=== PATIENT | female | born 1970 | race Caucasian/White ===

== ENCOUNTER → 2020-02-14 17:21 | Outpatient (BNVA) | payer OTHER, SELFPAY | PROVIDERS: Family Provider Family Medicine; PCP Family Medicine; Visit Provider Surgery | DX: Z01.818 Encounter for other preprocedural examination (principal) | CPT/HCPCS: 87635 ==

== ENCOUNTER 2020-02-19 06:59 | Day surgery (SDC) | payer OTHER, SELFPAY ==
[2020-02-15 13:01] VITALS: BMI 31.4
[2020-02-19 07:09] VITALS: BP 154/86; PULSE 70; RESP 16; TEMP 36.5; O2SAT 100
--- NOTE | 2020-02-19 07:24 | ANES.PREANE2 ---
Pre-Anesthetic Assessment Pre-Anesthetic Assessment: Height/Weight: Height 1.63 m Weight 83.007 kg Temp Pulse Resp BP Pulse Ox 97.7 F 70 16 154/86 100 02/19/20 07:09 02/19/20 07:09 02/19/20 07:09 02/19/20 07:09 02/19/20 07:09 Preop Diagnosis: panendoscopy Proposed Procedure: Operation Date: 02/19/20 08:00 Proposed Procedures p EGD [id number] K92.1(Not Applicable) - Pnio Colorado MD s Colonoscopy(Not Applicable) - Pino Colorado MD Was Beta Santosh taken within 24 hours: N/A Last intake: Intake Last Liquid Date 02/18/20 Last Liquid Time 22:00 Last Solid Date 02/17/20 Last Solid Time 18:30 Social: Social History: No alcohol and No tobacco Exam: Pre-Anes Outpt Exam: alert, oriented x 3, clear to auscultation bilaterally and regular rate & rhythm Airway: Submandibular: WNL Cervical ROM: WNL MP: 2 Dentition: Full CV/HEM: CV/HEM: Anemia Metabolic: Metabolic: Morbid obesity Anesthetic Plan: ASA status: 2 Anesthesia: MAC PFSH Anesthesia PFSH: Medical History Anxiety Depression IBS (irritable bowel syndrome) Surgical History H/O exploratory laparotomy x 2 for twisted bowel H/O gastric bypass H/O hernia repair H/O tubal ligation H/O: hysterectomy History of oophorectomy, unilateral Hx of cholecystectomy Status post colonoscopy Family History Father CAD (coronary artery disease) Other Cancer Diabetes Hypertension Denies family history of Anesthesia complication Bleeding disorder Social History Smoking and tobacco status: never smoked Alcohol intake: never Household members: spouse Marital status: Current occupational status: employed History of recent travel: No Data Anesthesia Cardiac Studies: No Data to Display
[2020-02-19] MEDS: sodium chloride 0.9% 1,000 ML 30 ML IV (07:27)
[2020-02-19 08:41] VITALS: BP 104/61; PULSE 75; RESP 16; TEMP 36.6; O2SAT 100
--- NOTE | 2020-02-19 08:42 | ANE.PACU2 ---
Inpatient post-anesthesia follow up: Airway intact: Yes Vital signs: Temperature 97.7 F Pulse Rate 70 Respiratory Rate 16 Blood Pressure 154/86 Pulse Oximetry 100 Oxygen Delivery Me thod Room Air Oxygen Flow Rate Fraction of Inspir ed Oxygen Hydration adequate: Yes Nausea and vomiting: No Mental status: Baseline
--- NOTE | 2020-02-19 08:45 | W.PM.OPSUD ---
Surgery/Procedure H&P Update DATE OF PROCEDURE: February 19, 2020 DATE H&P PERFORMED: 01/21/20 H&P UPDATE INFORMATION: I have reviewed H&P completed within last 30 days, I have examined patient prior to procedure and No changes to prior documentation PREOP DIAGNOSIS: panendoscopy PLANNED PROCEDURE: Operation Date: 02/19/20 08:00 Proposed Procedures p EGD [id number] K92.1(Not Applicable) - Pino Colorado MD s Colonoscopy(Not Applicable) - Pino Colorado MD
[2020-02-19 08:56] VITALS: BP 109/66; PULSE 58; RESP 18; TEMP 36.5; O2SAT 99
[2020-02-19 09:13] VITALS: BP 129/68; PULSE 56; RESP 18; O2SAT 99
--- NOTE | 2020-02-19 15:36 | ANE.PACU2 ---
Inpatient post-anesthesia follow up: Airway intact: Yes Vital signs: Temperature 97.7 F Pulse Rate 56 Respiratory Rate 18 Blood Pressure 129/68 Pulse Oximetry 99 Oxygen Delivery Me thod Room Air Oxygen Flow Rate 4 Fraction of Inspir ed Oxygen Hydration adequate: Yes Nausea and vomiting: No Pain level: 1 Mental status: Baseline
== END 2020-02-19 09:33 | disposition home or self-care (01) ==
PROVIDERS: PCP Family Medicine; Visit Provider Surgery
PROC: 0DJ08ZZ Inspection of Upper Intestinal Tract, Via Natural or Artificial Opening Endoscopic (ICD-10-PCS; CPT 43235; principal; 2020-02-19 08:00)
PROC: 0DJD8ZZ Inspection of Lower Intestinal Tract, Via Natural or Artificial Opening Endoscopic (ICD-10-PCS; CPT 45378; 2020-02-19 08:00)
DX: K92.1 Melena (principal); K57.30 Diverticulosis of large intestine without perforation or abscess without bleeding; K64.8 Other hemorrhoids; R10.12 Left upper quadrant pain; F41.9 Anxiety disorder, unspecified; F32.9 Major depressive disorder, single episode, unspecified; K44.9 Diaphragmatic hernia without obstruction or gangrene; E66.01 Morbid (severe) obesity due to excess calories; Z68.31 Body mass index [BMI] 31.0-31.9, adult
CPT/HCPCS: 12345; 43235; 45378; J2704; J7030

== ENCOUNTER 2020-03-04 10:46 | Outpatient (CLI) | payer OTHER, SELFPAY ==
--- NOTE | 2020-03-04 10:58 | MM_ITS ---
WS: [id number] BILATERAL DIGITAL SCREENING MAMMOGRAPHY WITH CAD CLINICAL INFORMATION: SCREENING HISTORY: Screening mammogram. No current complaints. COMPARISON: September 28, 2016 TECHNIQUE: Bilateral CC and MLO views. FINDINGS: Scattered fibroglandular densities bilaterally. No suspicious focal mass, asymmetry, calcifications, or architectural distortion. No evidence of malignancy. MM/[place] [id number] IMPRESSION: BI-RADS: 1-Negative FOLLOW UP: 1 Year Follow-up Recommend return to annual screening mammography.
== END 2020-03-04 10:47 | disposition home or self-care (01) ==
LOC: RADSHAW 10:46
PROVIDERS: PCP Family Medicine; Visit Provider Family Medicine
DX: Z12.31 Encounter for screening mammogram for malignant neoplasm of breast (principal)
CPT/HCPCS: 77067

== ENCOUNTER 2020-03-19 08:59 | Outpatient (CLI) | payer OTHER, SELFPAY ==
[2020-03-19] MEDS: iohexol 300 mg/mL 50 mL Btl PO (09:05)
[2020-03-19] MEDS: iohexol 300 mg/mL 100 mL Btl IV (10:28)
--- NOTE | 2020-03-19 10:30 | CT_ITS ---
WS: [id number] CT ABDOMEN AND PELVIS WITH CONTRAST HISTORY: R10.9 - Unspecified abdominal pain TECHNIQUE: Imaging performed of the abdomen and pelvis with IV contrast. Single phase imaging of the abdomen. Coronal and sagittal reformats are submitted. All CT scans at [facility] use at least one of these dose optimization techniques: automated exposure control; mA and/or kV adjustment per patient size (includes targeted exams where dose is matched to clinical indication); or iterativ e reconstruction. IV CONTRAST: Omnipaque 300; 95 mL IV. Oral contrast: Yes. DLP: 1163.71 mGycm COMPARISON: 06/22/2017 Lower thorax: Lung bases are clear. Heart is normal size. No hiatal hernia. Liver/biliary system: Normal size with no intrahepatic dilatation. Gallbladder: Status post cholecystectomy. Pancreas: Normal. Spleen: Normal size spleen with granulomata. Adrenal glands: Normal. Right kidney: Normal. Left kidney: Low-attenuation nodule measures 6 mm in the upper pole. No solid mass or obstruction. Aorta: Normal. Lymphadenopathy: None. Free fluid: None. GI tract: Postsurgical changes of a prior gastric bypass. There are also surgical sutures noted in th e region of the mid transverse colon. There is a swirling pattern of the mesentery within the upper m id abdomen closely associated with the transverse colon and small bowel. This may be an intussuscepti on or an internal hernia. Does not appear to be an obstruction at this time but this may cause interm ittent obstruction or even intermittent ischemia. Abdominal wall: Unremarkable abdominal wall. No hernia. Pelvis: Normal appendix. No free fluid. No adenopathy. Bones: Unremarkable. CT/CT abdomen pelvis w con* [id number] IMPRESSION: 1. Abnormal appearance of the mesentery in the mid upper abdomen. There is a s wirling appearance of the mesentery which may be related to an internal hernia/ volvulus. Intussusception may appear similar. At this time there is no obstruct ion but this may lead to intermittent obstruction or even ischemia. 2. Prior cholecystectomy. 3. LEFT renal angiomyolipoma, stable. 4. Prior gastric bypass.
== END 2020-03-19 09:00 | disposition home or self-care (01) ==
LOC: RADWPI 09:01
PROVIDERS: PCP Family Medicine; Visit Provider Surgery
DX: R10.9 Unspecified abdominal pain (principal); Z98.84 Bariatric surgery status; D17.71 Benign lipomatous neoplasm of kidney; Z90.49 Acquired absence of other specified parts of digestive tract
CPT/HCPCS: 74177; Q9967

== ENCOUNTER → 2020-12-30 16:24 | Outpatient (BNVA) | payer OTHER, SELFPAY | PROVIDERS: PCP Family Medicine; Visit Provider Family Medicine | DX: D64.9 Anemia, unspecified (principal); K58.9 Irritable bowel syndrome, unspecified; K92.1 Melena; Z13.220 Encounter for screening for lipoid disorders; Z13.6 Encounter for screening for cardiovascular disorders; Z76.89 Persons encountering health services in other specified circumstances | CPT/HCPCS: 80053; 80061; 84439; 84443; 85025 ==

== ENCOUNTER 2021-05-25 07:50 | Outpatient (CLI) | payer OTHER, SELFPAY ==
--- NOTE | 2021-05-25 07:56 | MM_ITS ---
WS: [id number] BILATERAL SCREENING 3D TOMOSYNTHESIS DIGITAL MAMMOGRAM WITH CAD HISTORY: SCREENING COMPARISON: 03/04/2020 and 09/28/2016 Bilateral CC and MLO views submitted. Computer aided detection analyzed. Breast composition: The breasts are heterogeneously dense, which may obscure small masses. No suspici ous masses, microcalcifications or architectural distortion. MM/[place] [id number] IMPRESSION: BI-RADS: 1-Negative FOLLOW UP: 1 Year Follow-up
== END 2021-05-25 07:51 | disposition home or self-care (01) ==
PROVIDERS: PCP Family Medicine; Visit Provider Family Medicine
DX: Z12.31 Encounter for screening mammogram for malignant neoplasm of breast (principal)
CPT/HCPCS: 77063; 77067

== ENCOUNTER → 2021-10-01 09:53 | Outpatient (BNVA) | payer OTHER, SELFPAY | PROVIDERS: PCP Family Medicine; Visit Provider Family Medicine | DX: K58.9 Irritable bowel syndrome, unspecified (principal); Z71.3 Dietary counseling and surveillance; Z68.30 Body mass index [BMI] 30.0-30.9, adult | CPT/HCPCS: 80053 ==

== ENCOUNTER → 2022-09-28 09:12 | Outpatient (BNVA) | payer OTHER, SELFPAY | PROVIDERS: PCP Family Medicine; Visit Provider Family Medicine | DX: H60.90 Unspecified otitis externa, unspecified ear (principal); D64.9 Anemia, unspecified; F32.9 Major depressive disorder, single episode, unspecified; K58.9 Irritable bowel syndrome, unspecified; E83.52 Hypercalcemia; Z13.220 Encounter for screening for lipoid disorders; Z13.6 Encounter for screening for cardiovascular disorders; D50.9 Iron deficiency anemia, unspecified; K58.2 Mixed irritable bowel syndrome; F33.42 Major depressive disorder, recurrent, in full remission | CPT/HCPCS: 80053; 80061; 82306; 82607; 82728; 83550; 84443; 85025 ==

== ENCOUNTER 2022-12-17 15:05 | Outpatient (CLI) | payer OTHER, SELFPAY ==
--- NOTE | 2022-12-17 15:21 | MM_ITS ---
WS: [id number] BILATERAL 3D TOMOSYNTHESIS DIGITAL SCREENING MAMMOGRAPHY WITH CAD CLINICAL INFORMATION: SCREENING HISTORY: Screening mammogram. No current complaints. COMPARISON: 2021 TECHNIQUE: Bilateral CC and MLO views. FINDINGS: Scattered fibroglandular densities bilaterally. No suspicious focal mass, asymmetry, calcifications, or architectural distortion. No evidence of malignancy. A few incidental punctate calcifications. IMPRESSION: MM/[place] [id number] BI-RADS: 2-Benign FOLLOW UP: 1 Year Follow-up Recommend return to annual screening mammography.
== END 2022-12-17 15:06 | disposition home or self-care (01) ==
PROVIDERS: PCP Family Medicine; Visit Provider Family Medicine
DX: Z12.31 Encounter for screening mammogram for malignant neoplasm of breast (principal)
CPT/HCPCS: 77063; 77067

== ENCOUNTER → 2024-04-20 08:42 | Outpatient (BNVA) | payer BC, SELFPAY | PROVIDERS: PCP Family Medicine; Visit Provider Family Medicine | DX: Z13.220 Encounter for screening for lipoid disorders (principal); Z13.6 Encounter for screening for cardiovascular disorders | CPT/HCPCS: 80053; 80061; 84443; 85025 ==

== ENCOUNTER 2024-05-21 13:13 | Outpatient (CLI) | payer OTHER, SELFPAY ==
--- NOTE | 2024-05-21 13:30 | CT_ITS ---
WS: [id number] CT ABDOMEN AND PELVIS WITH CONTRAST HISTORY: acute abd pain - history of torsion in the past TECHNIQUE: Imaging performed of the abdomen and pelvis with IV contrast. Single phase imaging of the abdomen. Coronal and sagittal reformats are submitted. All CT scans at [facility] use at least one of these dose optimization techniques: automated exposure control; mA and/or kV adjustment per patient size (includes targeted exams where dose is matched to clinical indication); or iterative reconstruction. IV CONTRAST: Omnipaque 350; 100 mL IV. Oral contrast: Yes. DLP: 542.09 mGy.cm COMPARISON: 03/19/2020 Lower thorax: Lung bases are clear. Heart is normal size. No hiatal hernia. Liver/biliary system: Normal size with no intrahepatic dilatation. Gallbladder: Prior cholecystectomy. Pancreas: Normal size pancreas and pancreatic duct. No adjacent inflammation. Spleen: Normal size spleen with a few granulomata. Adrenal glands: Normal. Right kidney: Normal. Left kidney: Normal size kidney. No obstruction. Stable 4 mm hypodensity which is probably a small cyst. Aorta: Normal. Lymphadenopathy: None. Free fluid: None. GI tract: Prior gastric bypass. Stomach is not dilated. The oral contrast is present throughout the small bowel with no obstructive pattern. No colon obstruction. No colitis. No torsion. Abdominal wall: Unremarkable abdominal wall. No hernia. Pelvis: No free fluid or adenopathy within the pelvis. Prior hysterectomy. Bones: Unremarkable. CT/CT abdomen pelvis w con* [id number] IMPRESSION: 1. No acute abdominal or pelvic abnormalities. 2. Prior gastric bypass. 3. Stomach is not dilated. There is no gastric outlet obstruction. 4. No colitis or enteritis. 5. No renal obstruction. 6. Prior hysterectomy. 7. Prior cholecystectomy.
[2024-05-21] MEDS: iohexol 350 mg/mL 500 mL Btl (per mL) IV (14:20)
== END 2024-05-21 13:14 | disposition home or self-care (01) ==
LOC: RAD 13:15
PROVIDERS: PCP Family Medicine; Visit Provider Family Medicine
DX: R10.9 Unspecified abdominal pain (principal); Z98.84 Bariatric surgery status; Z90.710 Acquired absence of both cervix and uterus; Z90.49 Acquired absence of other specified parts of digestive tract; D73.89 Other diseases of spleen; R93.422 Abnormal radiologic findings on diagnostic imaging of left kidney
CPT/HCPCS: 74177

== ENCOUNTER 2024-05-25 08:27 | Outpatient (CLI) | payer OTHER, SELFPAY ==
--- NOTE | 2024-05-25 08:40 | MM_ITS ---
WS: [id number] Bilateral screening 3D tomosynthesis digital mammogram, 05/25/2024 8:44 AM Clinical Data: screening Comparison: 12/17/2022, 05/25/2021, 03/04/2020, 05/29/2016, 12/11/2014. 04/11/2013, 07/30/2011, 05/09/2009, 07/08/2006. Findings: No spiculated masses or clustered calcifications are seen. There are no secondary signs of carcinoma. MM/MM scr BI tomosynthesis [id number] Impression: Negative bilateral mammogram unchanged. Recommend annual screening mammograms. BIRADS: 1 - Negative. FOLLOW UP: 1 Year Follow-up DENSITY: There are scattered areas of fibroglandular density. The CAD power checker was used
== END 2024-05-25 08:28 | disposition home or self-care (01) ==
PROVIDERS: PCP Family Medicine; Visit Provider Family Medicine
DX: Z12.31 Encounter for screening mammogram for malignant neoplasm of breast (principal); R92.323 Mammographic fibroglandular density, bilateral breasts
CPT/HCPCS: 77063; 77067

== ENCOUNTER 2024-06-01 08:00 | Oncology outpatient (recurring) (ONCR) | payer OTHER, SELFPAY ==
[2024-05-25 09:03] VITALS: BP 116/74; PULSE 45; RESP 17; TEMP 36.4; O2SAT 97
[2024-05-25] MEDS: iron sucrose 200 MG in sodium chloride 0.9% (100 ml) 100 ML IV (09:26)
[2024-05-28 08:10] VITALS: BP 120/65; PULSE 58; RESP 16; TEMP 36.6; O2SAT 99
[2024-05-28] MEDS: iron sucrose 200 MG in sodium chloride 0.9% (100 ml) 100 ML IV (08:15)
[2024-05-30] MEDS: iron sucrose 200 MG in sodium chloride 0.9% (100 ml) 100 ML IV (07:59)
[2024-05-30 08:00] VITALS: BP 117/76; PULSE 51; RESP 16; TEMP 36.4; O2SAT 99
[2024-06-01] MEDS: iron sucrose 200 MG in sodium chloride 0.9% (100 ml) 100 ML IV (08:15)
[2024-06-01 08:29] VITALS: BP 111/66; PULSE 63; RESP 16; TEMP 36.4; O2SAT 95
== END 2024-06-06 23:59 | disposition home or self-care (01) ==
PROVIDERS: PCP Family Medicine; Visit Provider Family Medicine
DX: D50.9 Iron deficiency anemia, unspecified; Z79.899 Other long term (current) drug therapy; Z53.9 Procedure and treatment not carried out, unspecified reason
CPT/HCPCS: 96365; J1756

== ENCOUNTER 2024-06-08 15:51 | Outpatient (CLI) | payer OTHER, SELFPAY | END 2024-06-08 15:52 | disposition home or self-care (01) | PROVIDERS: PCP Family Medicine; Visit Provider Family Medicine | DX: R10.13 Epigastric pain (principal) | CPT/HCPCS: 87338 ==

== ENCOUNTER → 2024-08-24 10:10 | Outpatient (BNVA) | payer OTHER, SELFPAY | PROVIDERS: PCP Family Medicine; Visit Provider Family Medicine | DX: D50.9 Iron deficiency anemia, unspecified (principal); R10.9 Unspecified abdominal pain; Z13.6 Encounter for screening for cardiovascular disorders | CPT/HCPCS: 82728; 82785; 83550; 85025; 86001; 86003; 86008 ==